=== PATIENT | female | born 1965 | race Caucasian/White ===

== ENCOUNTER 2018-04-16 10:12 | Day surgery (SDC) | payer OTHER ==
[2018-04-16] VITALS (9 sets, daily range): BP systolic 146–175; BP diastolic 65–76; PULSE 75–84; RESP 16–20; Ht 162.6 cm; Wt 98.6 kg
[~2018-04-16] VITALS: Ht 162.6 cm; Wt 98.6 kg
[~2018-04-16 10:12] MED LIST: BALANCED SALT SOLN 15 ML OPH IRRIG ONE; LIDOCAINE 2% (SDV) 5 ML INJ ONE; PROPOFOL 200 MG INJ ONE; TOBRAMYCIN/DEXAMETH 3.5 GM OPH OINT RIGHT EYE ONE
[2018-04-16] MEDS ORDERED: MITOMYCIN 5 MG INJ OP ONE (11:00)
--- NOTE | 2018-04-16 11:07 | PREAC ---
Date/Time of Note Date/Time of Note DATE: 04/16/18 TIME: 11:02 Anesthesia Eval and Record Evaluation Time Pre-Procedure Interview DATE: 04/16/18 TIME: 11:02 Age 52 Sex female NPO: 8 hrs Preoperative diagnosis pterygium R eye Planned procedure R eye pterygium excision Past Medical History Past Medical History: Includes Cardio: HTN Endo: Diabetes GI: Obesity Surgery & Anesthesia Issues No known issue Meds Anticoagulation: No Beta Candy within 24 hr: No Reason Beta Candy not given: Pt. not on B-Candy Meds reviewed: Yes Allergies Coded Allergies: No Known Allergy (Unverified , 04/16/18) Allergies Reviewed: Yes Labs/Studies Labs Reviewed: Reviewed by anesthesiologist test: Negative Studies: ECG (SR, possible LVH) Pre-procedure Exam Airway: Adequate mouth opening, Adequate thyromental dist Mallampati: Mallampati III Teeth: Normal Lung: Normal Heart: Normal ASA Physical Status ASA physical status: 2 Emergency: None Planned Anesthetic General/MAC: LMA, MAC (spoke to pt about general vs MAC) Pre-operative Attestations Prior to commencing anesthesia and surgery, the patient was re-evaluated, there was verification of: *The patient's identity *The results of appropriate recent lab work and preoperative vital signs *The above evaluation not changing prior to induction *Anesthetic plan, risk benefits, alternative and complications discussed with patient/family; questions answered; patient/family understands, accepts and wishes to proceed. Garden Equipment Mechanic used BENNY BILLS Apr 16, 2018 11:07
[2018-04-16] MEDS ORDERED: LISI-313 PO (11:12)
[2018-04-16] MEDS ORDERED: METF500T3 PO (11:19)
[2018-04-16] MEDS ORDERED: METF500T24 PO (11:19)
[2018-04-16] MEDS ORDERED: LIDOCAINE 2%/EPI (MDV) 20ML INJ INJ ONE (12:15)
--- NOTE | 2018-04-16 12:21 | HPN ---
Date/Time of Note Date/Time of Note DATE: 04/16/18 TIME: 12:21 Interval H&P Admission Note Pt. seen H&P reviewed: No system changes RONNIE GEE MD Apr 16, 2018 12:21
[2018-04-16] MEDS ORDERED: LIDOCAINE 2%/EPI MPF (SDV) 20 ML VIAL ONE (12:22)
--- NOTE | 2018-04-16 12:30 | SIPON ---
Date/Time of Note Date/Time of Note DATE: 04/16/18 TIME: 12:22 Operative Report Preoperative Diagnosis pterygium right eye Postoperative Diagnosis same Operation/Procedure Performed 1. excision of pterygium 2.application of mitomycin 3. 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
[2018-04-16] MEDS ORDERED: MIDAZOLAM 1 MG/ML 2 ML INJ ONE (12:59)
[2018-04-16] MEDS ORDERED: LABETALOL HCL 20MG INJ ONE (13:04)
[2018-04-16] MEDS ORDERED: TOBRAMYCIN/DEXAMETH 3.5 GM OPH OINT ONE ×2 (13:07→13:08)
[2018-04-16] MEDS ORDERED: OXYCODONE/ACETAMINOPHEN (5/325) TAB PO PRN (13:30)
[2018-04-16] MEDS ORDERED: ONDANSETRON 4 MG INJ IV PRN (13:30)
[2018-04-16] MEDS ORDERED: ALBUTEROL 0.083% (NEB) 2.5 MG/3 ML AMP HHN PRN (13:30)
[2018-04-16] MEDS ORDERED: ACETAMINOPHEN 325 MG TAB PO PRN (13:30)
[2018-04-16] MEDS ORDERED: FENTAnyl 50 MCG/ML VIAL IV PRN (13:30)
[2018-04-16] MEDS ORDERED: DIPHENHYDRAMINE 50 MG INJ IV PRN (13:30)
[2018-04-16] MEDS ORDERED: ACETAMINOPHEN 500 MG TAB PO PRN (13:30)
[2018-04-16] MEDS ORDERED: LABETALOL HCL 20MG INJ IV PRN (13:30)
[2018-04-16] MEDS ORDERED: hydrALAzine 20 MG INJ IV PRN (13:30)
--- NOTE | 2018-04-16 13:47 | PAC ---
Date/Time of Note Date/Time of Note DATE: 04/16/18 TIME: 13:45 Post-Anesthesia Notes Post-Anesthesia Note Last documented vital signs Vital Signs Date Temp Pulse Resp B/P (MAP) Pulse Ox O2 O2 Flow FiO2 Time Delivery Rate 04/16/18 99.1 90 16 145/62 99 NC 2L 1340 Activity: WNL Respiratory function: WNL Cardiovascular function: WNL Mental status: Baseline Pain reasonably controlled: Yes Hydration appropriate: Yes Nausea/Vomiting absent: Yes BENNY BILLS Apr 16, 2018 13:47
--- NOTE | 2018-04-16 14:25 | OPR ---
DATE OF OPERATION: 04/16/2018 SURGEON: Светлана Cortes MD JACQUARD CARD CUTTER: None. PREOPERATIVE DIAGNOSIS: Pterygium, right eye. POSTOPERATIVE DIAGNOSIS: Pterygium, right eye. OPERATION: Excision of pterygium, right eye; application of mitomycin C; closure of defect with conj unctival advancement flaps. DESCRIPTION OF PROCEDURE: Following standard preparation and draping of the patient, a solid-blade l id speculum was placed for immobilization of the lids. A small amount of 2% Xylocaine with epinephri ne was injected beneath the body of the pterygium so as to elevate it from the underlying sclerae. A fter adequate local anesthesia was obtained, Krystin scissors were simply used to make an incision a long the edges of the pterygium, amputating the body approximately 1 cm posterior to the limbus. At the limbus, the major portion of the tissue was simply excised using sharp scissors. Using a rotating gabi bur, all of the scar tissue on the cornea was removed down to clear cornea. At this point, bleeding points were secured with the heat cautery. Mitomycin C (0.2 mg/ml) was now applied to the limbal regions for three minutes. After three minutes, the eye was copiously irrigate d with balanced salt solution. A peritomy was now performed both superiorly and inferiorly and relax ing incisions made at approximately the 6 and 12 o'clock positions. The undermining conjunctiva was now pulled both superiorly and inferiorly so as to close the previously made defect from which the pt erygium had been removed. Sutures of interrupted 8-0 Vicryl were used and a bite of the underlying s clera was taken so as to ensure adequate maintenance of the flaps in a non-movable position. Betadine 5% solution was placed on the eye, along with TobraDex ointment. A light pressure dressing was applied, and the patient returned to the recovery room in satisfactory condition. Dictated By: СВЕТЛАНА SIMPSON/HESHAM Conf#: [id number] DID#: [id number]
== END 2018-04-16 16:05 | disposition home or self-care (01) ==
LOC: SDS 10:12 → EDBD 10:12 → SDS 16:05
PROVIDERS: ATTEND Ophthalmology
DX: H11.001 Unspecified pterygium of right eye (principal); I10 Essential (primary) hypertension; E11.9 Type 2 diabetes mellitus without complications
CPT/HCPCS: 65426; 82962; 84703; J2250; J9280; Z7512; Z7610